=== PATIENT | male | born 1980 | race Caucasian/White ===

== ENCOUNTER 2022-07-21 14:55 | Emergency (ER) | payer BC, SELFPAY ==
[2022-07-21 15:11] VITALS: BP 119/74; PULSE 96; RESP 18; TEMP 36.9; O2SAT 97
--- NOTE | 2022-07-21 15:33 | ED.GENADULT ---
HPI - General Adult General Chief complaint: Upper Respiratory Infection Stated complaint: nasal drainage History of Present Illness HPI narrative: Patient is a 41-year-old male who presents to the urgent care via POV for evaluation of cold symptoms that began 5 days ago. Additionally, he reports dry cough, sore throat, nasal congestion, and fever. Maximum temperature was 100.0. Tylenol provides some relief. Symptoms worsen at work. He was exposed to RSV by his son. Tested positive for COVID 45 days ago. Related Data Home Medications Medication Instructions Recorded Confirmed allopurinol 300 mg tablet 150 mg PO DAILY 07/21/22 07/21/22 omeprazole 20 mg capsule,delayed 20 mg PO BID 07/21/22 07/21/22 release rosuvastatin 10 mg tablet (Crestor) 10 mg PO DAILY 07/21/22 07/21/22 Allergies Allergy/AdvReac Type Severity Reaction Status Date / Time No Known Allergies Allergy Verified 07/21/22 15:22 Review of Systems Review of Systems: Denies chills, sweats, change in appetite, poor p.o. intake, dizziness, headaches, ear problems, sinus problems, rhinorrhea, malaise, fatigue, myalgias, cyanosis, wheezing, shortness of breath, abdominal pain, nausea, vomiting, diarrhea, drooling, difficulty swallowing, chest pain, and heart palpitations Exam Narrative: GENERAL: Well-appearing, well-nourished, and in no acute distress. HEAD: Normocephalic, atraumatic. No sinus tenderness or facial swelling appreciated. EYES: PERRLA and EOMI. No evidence of erythema, swelling, or drainage. ENT: Bilateral external ears and ear canals normal. Bilateral TMs are normal.No TM perforation. Nares clear, no rhinorrhea or epistaxis. Bilateral turbinates without erythema/ swelling. Mucous membranes moist and pink. Uvula is midline without erythema and swelling. Mild erythema noted to posterior pharynx otherwise normal. Breath odor and voice normal. NECK: Supple. No Lymphadenopathy or nuchal rigidity appreciated. CHEST: Bilateral lung latif are clear to auscultation. No respiratory distress. No evidence of cough or pleuritic cp upon examination. HEART: Regular rate and rhythm. No murmur, gallop, or rub heard. EXTREMITIES: Normal range of motion. No edema. SKIN: Warm, dry, no rash. NEURO: No focal deficits. Alert and oriented x3. Course Course Level of Care: Express Care Visit Vital Signs Vital signs: Vital Signs Temperature 98.4 F 07/21/22 15:11 Pulse Rate 96 07/21/22 15:11 Respiratory Rate 18 07/21/22 15:11 Blood Pressure 119/74 07/21/22 15:11 Pulse Oximetry 97 07/21/22 15:11 Oxygen Delivery Room Air 07/21/22 15:11 Temperature 98.4 F 07/21/22 15:11 Pulse Rate 96 07/21/22 15:11 Respiratory Rate 18 07/21/22 15:11 Blood Pressure 119/74 07/21/22 15:11 Pulse Oximetry 97 07/21/22 15:11 Oxygen Delivery Room Air 07/21/22 15:11 Reviewed Medical Decision Making Differential Diagnosis Differential Diagnosis: Allergic rhinitis, ABRS, acute viral sinusitis, strep pharyngitis, nasopharyngitis, bronchitis, pneumonia, AOM, otitis externa, viral URI, influenza, covid-19 Vital Signs Vital Signs: Vital Signs Temperature 98.4 F 07/21/22 15:11 Pulse Rate 96 07/21/22 15:11 Respiratory Rate 18 07/21/22 15:11 Blood Pressure 119/74 07/21/22 15:11 Pulse Oximetry 97 07/21/22 15:11 Oxygen Delivery Room Air 07/21/22 15:11 Temperature 98.4 F 07/21/22 15:11 Pulse Rate 96 07/21/22 15:11 Respiratory Rate 18 07/21/22 15:11 Blood Pressure 119/74 07/21/22 15:11 Pulse Oximetry 97 07/21/22 15:11 Oxygen Delivery Room Air 07/21/22 15:11 Lab Data Lab results narrative: Rapid strep negative, influenza A/B negative Critical Care Time Critical Care Time Critical Care Time: No Discharge Plan Discharge Clinical Impression: Upper respiratory infection Patient Disposition: Home, Self-Care Condition: Stable Instructions: Upper Respiratory Infection
== END 2022-07-21 15:46 | disposition home or self-care (01) ==
PROVIDERS: Emergency Provider Nurse Practitioner Family; PCP Physician Assistant
DX: J06.9 Acute upper respiratory infection, unspecified (principal); Z86.16 Personal history of COVID-19
CPT/HCPCS: 87081; 87804; 87880; 99213; G0463